=== PATIENT | female | born 1990 | race Caucasian/White ===

== ENCOUNTER 2016-08-11 08:39 | Emergency (ER) | payer OTHER ==
--- NOTE | ~2016-08-11 | CT2 ---
[facility] A Service of [facility] & [facility] RADIOLOGY TEXT RESULTS PATIENT: SERAFIN RAZO LOCATION: [facility] : [birth year] UNIT #: [id number] AGE: [address]: Lluvia Montes MD SEX: F ORDER DR: [id number] [facility] [address] [place], [place] [address] [id number] MR#: [id number] #: [id number] NAME: SERAFIN RAZO : 1990 SEX: F STUDY DATE/TIME: 08/11/2016 13:10 UNIT: [facility] ROOM: STUDY DESCRIPTION: CT Abd and Pelv W Cont Attending Physician: Lluvia Montes M.D. Ordering Physician: Lluvia Montes M.D. Primary Care Physician: Barak Kamara M.D. MEDICAL IMAGING REPORT This report is preliminary unless electronic signature is present EXAM CT abdomen and pelvis, 08/11/2016. HISTORY Left flank pain into pelvic area. Vomiting x2 days. History of scoliosis, colostomy reversal. TECHNIQUE CT abdomen and pelvis performed with intravenous administration of 100 mL [address] exam was performed with one or more of the following radiation dose reduction techniques: automatic exposure control, adjustment of mA and/or kV according to patient size, and iterative reconstruction. COMPARISON 04/30/2015 FINDINGS Inferior heart and pericardium unremarkable. Dependent atelectasis lung bases. Liver, gallbladder, spleen, pancreas, adrenal glands, right kidney, and ureter unremarkable. The left kidney shows mild hydronephrosis and hydroureter to the level of a 4-5 mm calculus in the left ureter at the lower L4 vertebral body level. There is mild left perinephric inflammatory change, but no fluid collection. There is diminished left renal parenchymal enhancement reflecting the hydronephrosis. There is a punctate perhaps 1 mm nonobstructing calculus in the lower pole of the left kidney unchanged from prior study. Distal to the left ureteral calculus, remainder of the left ureter is decompressed. CT PELVIS: No inguinal adenopathy. Urinary bladder largely decompressed. It does contain a small amount of air, likely reflecting recent [facility]. [facility] A Service of [facility] & [facility] RADIOLOGY TEXT RESULTS PATIENT: SERAFIN RAZO LOCATION: [facility] : [birth year] UNIT #: [id number] AGE: [address]: Lluvia Montes MD SEX: F ORDER DR: instrumentation. Please correlate clinically. Uterus unremarkable. 3.4 cm cyst right ovary, likely dominant follicle for this menstrual cycle. 6-week ultrasound followup recommended to confirm decreasing size or resolution. Left ovarian dermoid again noted. It currently measures 3.9 cm x 7.3 cm x 4.5 cm, previously 3.8 cm x 6.6 cm x 4.1 cm. It contains predominantly fatty components, but there is soft tissue density material within it as well. The soft tissue density material does not appear grossly changed. I see no unusual enhancement. This the dermoid has increased in size from 2008, as well, when it measured up to about 3.3 cm in diameter. Given the ongoing increase in size at its large size overall, gynecologic assessment and possible surgical evaluation is strongly recommended. There are no findings to suggest ovarian torsion. The pelvis shows no fluid collections. No pelvic or retroperitoneal adenopathy. Distal esophagus, stomach, small bowel unremarkable. The appendix is not clearly identified, but there is no pericecal or right lower quadrant inflammatory change. Moderate stool burden in the distal colon. No pathologic dilatation. Evidence of prior surgical intervention in a rectal junction. No abnormal soft tissue along the anastomotic line. Vascular structures unremarkable. Bony structures show no acute abnormality. IMPRESSION 1. Abnormal examination. Please see the complete dictation above for full details. 4-5 mm calculus in the left ureter at inferior L4 vertebral body level resulting in mild left hydronephrosis and hydroureter to the level of the calculus. Mild left perinephric inflammatory change, but no perinephric fluid collection. Additional punctate 1 mm nonobstructing calculus lower pole left kidney. 2. Not mentioned in the body of the report above, subcentimeter cyst in the lateral right kidney. 3. Small amount of air in urinary bladder, likely reflecting recent instrumentation. Correlate clinically. 4. Previously described left ovarian dermoid has increased in size, now measuring 7.3 cm in diameter, previously 6.6 cm in maximum diameter. Given its size and increasing size over time, gynecologic consultation is strongly recommended. In the appropriate clinical context, surgical consultation could be considered. At this time, there is no evidence of ovarian torsion. 5. 3.4 cm right ovarian cyst likely the dominant follicle for this menstrual cycle. 6-week pelvic ultrasound followup recommended to confirm resolution or decreasing size. 6. Stable postoperative appearance at anorectal junction. No abnormal soft tissue along the anastomotic line. 7. Appendix not identified but no pericecal or right lower quadrant inflammatory change is seen. 8. Please see remainder of incidental findings in body of report above. [facility]. [facility] A Service of [facility] RADIOLOGY TEXT RESULTS PATIENT: SERAFIN RAZO LOCATION: [facility] : [birth year] UNIT #: [id number] AGE: [address]: Lluvia Montes MD SEX: F ORDER DR: Dictated by... Miguel Majano M.D. THIS IS AN ELECTRONICALLY VERIFIED REPORT Miguel Majano M.D. at 08/12/2016 7:16 PM MARSHA/ervin TD: 08/11/2016 14:52 JOB #: [id number] MEDICAL IMAGING REPORT Page 1 of 1 COPY
[~2016-08-11 08:39] MED LIST: PHENERGAN PO; ULTRAM PO
[2016-08-11 09:49] LABS: URINE SOURCE CLEAN CATCH
[2016-08-11 10:17] LABS: BASOPHIL% 0.2 % (0-2.5); DIFF IND YES; EOSINOPHIL% 0.1 % (0.0-7.0); HEMATOCRIT 42.9 % (35.0-45.0); HEMOGLOBIN 14.4 gm/dL (12.0-16.0); LYMPHOCYTE# 1.1 X10e3 (1.0-3.5); LYMPHOCYTE% 6.3 % (17.0-45.0); MEAN CELL VOLUME 86.7 FL (83-96); MEAN CORPUSCULAR HEMOGLOBIN 29.1 PG (28-34); MEAN CORPUSCULAR HGB CONC 33.5 g/dL (30-36); MEAN PLATELET VOLUME 7.4 FL (6.5-11.5); MONOCYTE% 5.5 % (3.0-12.0); NEUTROPHIL# 16.1 X10e3 (1.5-7.1); NEUTROPHIL% 87.9 % (40-75); PLATELET COUNT 363 X10e3 (140-420); RED BLOOD COUNT 4.95 X10e (3.90-5.30); RED CELL DISTRIBUTION WIDTH 12.6 % (11.0-15.5); WHITE BLOOD COUNT 18.3 X10e3 (4.0-10.5)
[2016-08-11 10:30] LABS: URINE APPEARANCE CLOUDY; URINE BLOOD 4+ (NEG); URINE COLOR RED; URINE GLUCOSE NORM (NORM); URINE KETONE NEG (NEG); URINE LEUKOCYTE ESTERASE 3+ (NEG); URINE NITRATE NEG (NEG); URINE PROTEIN 2+ (NEG); URINE UROBILINOGEN NORM (NORM)
[2016-08-11 10:41] LABS: URINE BILIRUBIN NEG (NEG)
[2016-08-11 10:48] LABS: ALBUMIN SERUM 3.8 g/dL (3.5-5.0); BILIRUBIN, DIRECT 0.1 mg/dL (0.0-0.2); BILIRUBIN,INDIRECT 0.7 mg/dL (0.0-0.9); BILIRUBIN,TOTAL 0.8 mg/dL (0.2-2.0); CALCIUM SERUM 8.9 mg/dL (8.4-10.2); CREATININE SERUM 0.6 mg/dL (0.6-1.4); GLOM FILT RATE Estimated 125.8 mL/min (>60); POTASSIUM 3.9 mmol/L (3.5-5.1); PROTEIN TOTAL SERUM 7.2 g/dL (6.0-8.3)
[2016-08-11 10:50] LABS: UWBCS1 AUWI 25-50 (0-5)
[2016-08-11 10:52] LABS: CULTURE INDICATED? YES; URINE BACTERIA AUWI NEG (NEGATIVE)
[2016-08-11 10:53] LABS: URINE SQUAMOUS EPITHELIAL CELL MOD /[HPF]
[2016-08-11 10:55] LABS: URBCS1 AUWI 100-200 /[HPF] (0-2)
[2016-08-11 11:16] LABS: ANISOCYTOSIS SL; PLATELET ESTIMATE NORMAL (NORMAL); RBC NORMAL YES
[2016-08-11 11:26] LABS: URINE APPEARANCE SL HAZY; URINE BILIRUBIN NEG (NEG); URINE BLOOD 4+ (NEG); URINE COLOR YELLOW; URINE GLUCOSE NORM (NORM); URINE KETONE NEG (NEG); URINE LEUKOCYTE ESTERASE NEG (NEG); URINE NITRATE NEG (NEG); URINE PROTEIN NEG (NEG); URINE UROBILINOGEN NORM (NORM)
[2016-08-11 11:50] LABS: URINE SOURCE CATH
[2016-08-11 12:16] LABS: URBCS1 AUWI 25-50 /[HPF] (0-2)
[2016-08-11 12:18] LABS: CULTURE INDICATED? NO; URINE BACTERIA AUWI NEG (NEGATIVE); URINE SQUAMOUS EPITHELIAL CELL OCCAS /[HPF]; UWBCS1 AUWI 0-2 (0-5)
[2016-08-13 09:55] LABS: CHLAMYDIA TRACH Not Detected (Not Detected); N GONOR Not Detected (Not Detected)
== END 2016-08-11 15:20 | disposition home or self-care (01) ==
LOC: CED 08:39
PROVIDERS: Emergency Medicine; Nurse Practitioner
DX: N20.1 Calculus of ureter (principal); D27.1 Benign neoplasm of left ovary; F17.200 Nicotine dependence, unspecified, uncomplicated
CPT/HCPCS: 36415; 74177; 80048; 80076; 81003; 82150; 84703; 85025; 87086; 87491; 87591; 87808; 87905; 96361; 96374; 96375; 99284; J1885; J2270; J2405; Q9967